=== PATIENT | female | born 1980 | race Caucasian/White ===

== ENCOUNTER 2018-11-05 05:58 | Inpatient (IN) ==
[2018-11-05] MEDS ORDERED: OXYTOCIN/DEXTROSE 5%-WATER 30 UNITS/500 ML BAG IV ONE ×2 (06:11→15:11)
[2018-11-05] MEDS ORDERED: RINGER'S SOLUTION,LACTATED 1,000 ML IV ONE (06:11)
[2018-11-05] MEDS ORDERED: DEXTROSE 5%-LACTATED RINGERS 1,000 ML IV PRN (06:11)
[2018-11-05] MEDS ORDERED: ONDANSETRON HCL/PF 2 MG/ML VIAL IV PRN ×2 (06:11→11:51)
[2018-11-05 07:54] LABS: Cocaine Ur Negative (NEGATIVE); Urine Barbiturate Negative (NEGATIVE); Urine Benzodiazepines Negative (NEGATIVE); Urine Opiates Negative (NEGATIVE); Urine PCP Negative (NEGATIVE); Urine THC Negative (NEGATIVE)
[2018-11-05] MEDS ORDERED: LIDOCAINE HCL/EPINEPHRINE 20 ML VIAL ONE (11:16)
--- NOTE | 2018-11-05 11:42 | ANES ---
Anesthesia Pre Procedure Eval Vitals/Labs: Last Vital Signs Temp 37.0 C 11/05/18 06:50 Pulse 97 11/05/18 06:50 Resp 20 11/05/18 06:50 BP 134/79 11/05/18 06:50 Pulse Ox 98 11/05/18 06:50 HOME MEDICATIONS ferrous sulfate 325 mg (65 mg iron) tablet 325 mg PO DAILY #30 tab 08/14/18 [Last Taken 11/04/18 21:00] Vits96/Iron Fum/Folic [ S] 1 tab PO DAILY 11/05/18 [Last Taken 11/04/18 21:00] Allergies/Adverse Reactions: Allergies Allergy/AdvReac Type Severity Reaction Status Date / Time No Known Allergies Allergy Verified 11/05/18 06:13 - Planned Procedure Planned Procedure: MEDICAL INDUCTION ADVANCED MEDICAL AGE Medication List Reviewed:: Yes Allergies Verified: Yes Medical History (Last Reviewed 11/05/18 @ 11:42 by Mateo Dunlap CRNA) Anxiety (Acute) Onset Date: Unknown Heart murmur (Chronic) Onset Date: Unknown Pt states only heard when she is History of fracture of right ankle (Resolved) Onset Date: ~2000 History of thrombocytopenia (Resolved) Onset Date: ~2014 with pregnancies History of seizures as a child (Resolved) Onset Date: Unknown Hypertension (Resolved) Onset Date: Unknown Anemia (Chronic) Onset Date: Unknown 2018-w/ , spontaneous (Resolved) Onset Date: ~2015 Hypertension (Chronic) Onset Date: Unknown Surgical History (Last Reviewed 11/05/18 @ 11:42 by Mateo Dunlap CRNA) History of cholecystectomy (Resolved) Onset Date: 02/14/17 History of eye surgery (Resolved) Onset Date: ~1982 piece of sparkler removed from eye History of tonsillectomy (Resolved) Onset Date: ~1983 History of myringotomy (Resolved) Onset Date: ~1982 1981 History of adenoidectomy (Resolved) Onset Date: ~1982 Family History (Last Reviewed 11/05/18 @ 11:42 by Mateo Dunlap CRNA) Father Diabetes Hypertension Hyperlipemia CAD (coronary artery disease) Mother COPD (chronic obstructive pulmonary disease) Heart disease Asthma - Family Anesthesia History Family History:: no untoward family reactions to anesthesia - Airway/Neck/Teeth Within Normal Limits:: Yes Teeth Condition: intact Denture Type: None Neck Exam: full range of motion Mallampatti Score: 1 Thyromental (T-M) distance: > 6 cm Mandibulo Hyoid distance: > 3 cm - Respiratory Respiratory Physical: lungs clear Smoking Status: Never smoker Sleep Apnea currently treated: No Sleep Apnea by current assessment: No - Cardiovascular Tolerate Activity: Good Heart Sounds: S1 & S2, Regular - Anesthesia Assessment and Plan ASA Class: PS, II, E Anesthesia Type Plan: Epidural Planned difficult intubation/equipment available: No
--- NOTE | 2018-11-05 11:43 | ANES ---
Post Anesthesia Assessment - Vital Signs Vitals: Last Vital Signs Temp 37.0 C 11/05/18 06:50 Pulse 97 11/05/18 06:50 Resp 20 11/05/18 06:50 BP 134/79 11/05/18 06:50 Pulse Ox 98 11/05/18 06:50 Airway Patency: Normal - Mental Status Level Of Consciousness: Awake - Pain Level Pain Score: 2 - N/V Assessment Nausea/Vomiting Presence: None Dehydration:: No
--- NOTE | 2018-11-05 11:43 | ANES ---
Post Anesthesia Discharge - Transfer of Care Transfer of Care handoff given to nurse: Yes - Anesthesia Post Op Note Anesthesia Post Op Note: Care transferred to OB RN
--- NOTE | 2018-11-05 11:45 | ANES ---
Anesthesia Procedure Note Procedure Note: ANESTHESIA PROCEDURE NOTE Date of Procedure: 11/05/2018 Time of procedure: 1130. Performed by: Ryan Dunlap CRNA [facility] Program Manager: None. Preprocedure diagnosis: Active labor. Post procedure diagnosis: Same. Procedure: Insertion of labor epidural. Indications: The patient is a 38-year-old multigravid female in active labor requesting labor epidural for pain management. Findings: See below. Details of the procedure: The patient was placed in a sitting position. Back was prepped with DuraPrep. Patient was then draped in a sterile fashion. Lidocaine 1% was infiltrated to the skin and subcutaneous tissues at the level of the L3 4 interspace. The epidural space was identified using a 18-gauge Tuohy needle with [id number] technique. Epidural catheter was inserted without difficulty. Negative test dose was elicited using 3 mL of 2% preservative-free lidocaine plus epinephrine 1 200,000. The epidural catheter was then taped and secured in place. EBL: Minimal. Fluids: N/A. Specimen: N/A. Post procedure condition: The patient tolerated the procedure well. No complications were noted. Thank you for this consultation. Houser CRNA
[2018-11-05] MEDS ORDERED: BUPIVACAINE HCL/0.9 % NACL/PF 250 ML EP PRN (11:51)
[2018-11-05] MEDS ORDERED: NALOXONE HCL 1 MG/1 ML SYRG IV PRN (11:51)
--- NOTE | 2018-11-05 12:43 | HP ---
Chief Complaint - Chief Complaint Date of Service: 11/05/18 Time of Service: 12:42 Chief Complaint: Induction of labor for CHTN and AMA History of Present Illness: 38 yo at 39 wks presents to L&D for induction of labor due to AMA and C HTN. This complicated by AMA, anemia, anxiety, and CHTN. Rh positive Rubella immune GBS negative Medical History (Last Reviewed 11/05/18 @ 11:42 by Mateo Dunlap CRNA) Anxiety (Acute) Onset Date: Unknown Heart murmur (Chronic) Onset Date: Unknown Pt states only heard when she is History of fracture of right ankle (Resolved) Onset Date: ~2000 History of thrombocytopenia (Resolved) Onset Date: ~2014 with pregnancies History of seizures as a child (Resolved) Onset Date: Unknown Hypertension (Resolved) Onset Date: Unknown Anemia (Chronic) Onset Date: Unknown 2018-w/ , spontaneous (Resolved) Onset Date: ~2015 Hypertension (Chronic) Onset Date: Unknown Surgical History: Surgical History (Last Reviewed 11/05/18 @ 11:42 by Mateo Dunlap CRNA) History of cholecystectomy (Resolved) Onset Date: 02/14/17 History of eye surgery (Resolved) Onset Date: ~1982 piece of sparkler removed from eye History of tonsillectomy (Resolved) Onset Date: ~1983 History of myringotomy (Resolved) Onset Date: ~1982 1981 History of adenoidectomy (Resolved) Onset Date: ~1982 Family History: Family History (Last Reviewed 11/05/18 @ 11:42 by Mateo Dunlap CRNA) Father Diabetes Hypertension Hyperlipemia CAD (coronary artery disease) Mother COPD (chronic obstructive pulmonary disease) Heart disease Asthma Social History: Preferred Language Slovenian Smoking Status Never smoker Abuse History No History of abuse Psych History No pertinent hx (Last Updated 10/29/18 @ 14:20 by Gurpreet Gupta DO) No Social History Section defined Review Of Systems (GEN) - Review of Systems Generalized/Overall Review: Present: No Symptoms Reported EENTM: Present: No Symptoms Reported Respiratory: Present: No Symptoms Reported Cardiac: Present: No Symptoms Reported Abdominal: Present: No Symptoms Reported Genitourinary: Present: No Symptoms Reported Musculoskeletal: Present: No Symptoms Reported Neurological: Present: Emotional Problems Skin: Present: No Symptoms Reported Endocrine: Present: No Symptoms Reported Immunizations: IMMUNIZATION HX Immunizations Up to Date Yes History of Influenza Vaccine No Allergies/Adverse Reactions: Allergies Allergy/AdvReac Type Severity Reaction Status Date / Time No Known Allergies Allergy Verified 11/05/18 06:13 Home Medications: HOME MEDICATIONS ferrous sulfate 325 mg (65 mg iron) tablet 325 mg PO DAILY #30 tab 08/14/18 [Last Taken 11/04/18 21:00] Vits96/Iron Fum/Folic [ S] 1 tab PO DAILY 11/05/18 [Last Taken 11/04/18 21:00] Exam - Exam Vital Signs: Vital Signs - Last Taken Temp 37.0 C 11/05/18 06:50 Pulse 97 11/05/18 06:50 Resp 20 11/05/18 06:50 BP 134/79 11/05/18 06:50 Pulse Ox 98 11/05/18 06:50 Constitutional: Present: Alert, Oriented x3, Cooperative, No distress ENT Exam: Present: hearing grossly normal Respiratory: Present: lungs clear, no respiratory distress Cardiovascular/Chest: Present: regular rate, rhythm, no edema Abdomen: Present: soft, nontender, no rebound tenderness, other - gravid /Rectal: Present: Other - cervix 2-3/60/-2 Extremity: Present: no pedal edema, no calf tenderness Skin Exam: Present: normal color, warm/dry, no cyanosis Neurologic: Present: alert, normal mood/affect, oriented x 3 Appearance: Present: appropriate appearance, appropriate insight Eye contact: Present: cooperative, good eye contact Thoughts: Present: normal thought pattern Diagnostic Studies: Laboratory Results Urine Opiates Screen Negative (NEGATIVE) 11/05/18 07:15 Barbiturate Screen Negative (NEGATIVE) 11/05/18 07:15 Ur Phencyclidine Scrn Negative (NEGATIVE) 11/05/18 07:15 Urine Amphetamine Negative (NEGATIVE) 11/05/18 07:15 U Benzodiazepines Scrn Negative (NEGATIVE) 11/05/18 07:15 Urine Cocaine Screen Negative (NEGATIVE) 11/05/18 07:15 Urine Marijuana (THC) Negative (NEGATIVE) 11/05/18 07:15 NST reactive Assessment/Plan - Assessment/Plan (1) Encounter for induction of labor Assessment: Admit for pitocin induction of labor. Epidural PRN. Problem: Acute (2) Anxiety Problem: Acute (3) Advanced maternal age (AMA) in Problem: Acute (4) Hypertension Problem: Resolved
--- NOTE | 2018-11-05 12:45 | PN ---
Progess Note - Interim Date: 11/05/18 Time: 12:43 Narrative: 11/05/18 12:43 Patient comfortable with epidural Vital signs stable. Pitocin at 9 mu/min. FHT: 130 baseline, reassuring Contractions q 1-2 min Cervix: 8/90/-1 with compound head/hand presentation. Impression: Intrauterine at 39 weeks induction of labor for chronic hypertension and advanced maternal age Plan: With decreased Pitocin due to tach systole
--- NOTE | 2018-11-05 15:08 | OR ---
Operative Report - Dictated Report Narrative: Spontaneous vaginal delivery of viable female at 1434 on 11/05/2018 Apgars 9 and 9, weighing 3118 g in JOCELINE position. Placenta delivered complete, intact, with three vessel cord Estimated blood loss: 100 mL Anesthesia: epidural Lacerations: Second-degree vaginal laceration repaired with 3-0 Vicryl Rapide. Small arterial bleed at the introitus controlled with a [id number] 4-0 Vicryl Rapide stitch. History for MU Definition: * The number of deliveries resulting in a live the patient experienced prior to current hospitalization * The previous delivery of live twins or any live multiple gestation is consider ed one live event. *If primagravida or nulliparous is documented select zero for the number of previous live births. Live Events: 4
[2018-11-05] MEDS ORDERED: HYDROCORTISONE 30 APPL TUBE TP PRN (15:11)
[2018-11-05] MEDS ORDERED: GLYCERIN/WITCH HAZEL LEAF 40 APPL BOX TP PRN (15:11)
[2018-11-05] MEDS ORDERED: BENZOCAINE/MENTHOL 81 SPRAY CAN TP PRN (15:11)
[2018-11-05] MEDS ORDERED: oxyCODONE HCL/ACETAMINOPHEN 1 TAB TABLET PO PRN ×2 (15:11)
[2018-11-05] MEDS ORDERED: SENNOSIDES 8.6 MG TABLET PO PRN (15:11)
[2018-11-05] MEDS ORDERED: BISACODYL 10 MG SUPP.RECT RC PRN (15:11)
[2018-11-05] MEDS: DOCUSATE SODIUM 100 MG CAPSULE PO SCH (20:08)
[2018-11-05] MEDS: IBUPROFEN 800 MG TABLET PO PRN (21:21)
--- NOTE | 2018-11-06 04:37 | PN ---
Subjective - Date and Time Seen Date: 11/06/18 Time: 04:36 Objective - Vitals Vitals: Last Vital Signs Temp 37.0 C 11/06/18 00:31 Pulse 77 11/06/18 00:31 Resp 16 11/06/18 00:31 BP 114/59 11/06/18 00:31 Pulse Ox 98 11/06/18 00:31 Patient denies complaints. Breast-feeding and bonding well Lochia wnl Abdomen - soft, nontender Uterus - firm, at umbilicus - 1 No calf tenderness Impression: day #1 - s/p spontaneous vaginal delivery. Chronic hypertension-stable Plan: Continue routine care Cauti Physician Documentation - Urinary Catheter Management Urethral (Gu[place]upe) Date of Insertion: 11/05/18 Time of Insertion: 12:45 Date of Removal: 11/05/18 Time of Removal: 14:25 Assessment/Plan - Problems/Diagnosis (1) Encounter for induction of labor Problem: Acute (2) Anxiety Problem: Acute (3) Advanced maternal age (AMA) in Problem: Acute (4) Hypertension Problem: Resolved
[2018-11-06] MEDS: IBUPROFEN 800 MG TABLET PO PRN ×2 (10:10→20:50)
[2018-11-06] MEDS: DOCUSATE SODIUM 100 MG CAPSULE PO SCH ×2 (10:10→20:50)
[2018-11-06] MEDS ORDERED: NEOMYCIN/BACITRACIN/POLYMYXINB 15 APPL TUBE TP PRN (12:59)
[2018-11-06] MEDS ORDERED: NEOMYCIN/BACITRACIN/POLYMYXINB 30 APPL TUBE TP PRN (13:15)
[2018-11-07 08:33] VITALS: BP 123/74
[2018-11-07] MEDS: DOCUSATE SODIUM 100 MG CAPSULE PO SCH (10:46)
[2018-11-07] MEDS: IBUPROFEN 800 MG TABLET PO PRN (13:23)
--- NOTE | 2018-11-07 13:41 | PN ---
Subjective - Date and Time Seen Date: 11/07/18 Time: 13:40 Objective - Vitals Vitals: Last Vital Signs Temp 36.1 C 11/07/18 08:16 Pulse 78 11/07/18 08:16 Resp 18 11/07/18 08:16 BP 123/74 11/07/18 08:16 Pulse Ox 99 11/06/18 23:52 Patient denies complaints. Breast-feeding Lochia wnl Abdomen - soft, nontender Uterus - firm, at umbilicus - 2 No calf tenderness Impression: day #2 - s/p spontaneous vaginal delivery. Plan: Routine discharge instructions Cauti Physician Documentation - Urinary Catheter Management Urethral (Gu[place]upe) Date of Insertion: 11/05/18 Time of Insertion: 12:45 Date of Removal: 11/05/18 Time of Removal: 14:25 Assessment/Plan - Problems/Diagnosis (1) Encounter for induction of labor Problem: Acute (2) Anxiety Problem: Acute (3) Advanced maternal age (AMA) in Problem: Acute (4) Hypertension Problem: Resolved
== END 2018-11-07 13:30 | disposition home or self-care (01) | DRG 807 ==
LOC: OB 05:58
PROVIDERS: ADMIT Obstetrics & Gynecology; ATTEND Obstetrics & Gynecology
CPT/HCPCS: 59025; 80307; 88307

== ENCOUNTER 2020-07-08 08:05 | Inpatient (IN) ==
[2020-07-08 08:28] LABS: Hematocrit 36.1 % (37.0-47.0); Hemoglobin 11.8 gm/dL (12.5-16.0); Mean Corpuscular Hemoglobin 28.4 pg (27-31); Mean Corpuscular Hgb Conc 32.7 g/dl (32-36); Mean Platelet Volume 9.4 fl (8-12.5); Neutrophil % 73.6 % (42-75.0); Platelet Count 136 K/mm3 (150-450); Red Blood Count 4.15 M/mm3 (4.2-5.4); Red Cell Distribution Width 13.5 % (11.5-14.0); White Blood Count 6.8 K/mm3 (4.0-10.5)
[2020-07-08 08:49] LABS: Anion Gap 15.1 mmol/L (6.8-13.8); BUN/Creatinine Ratio 10.6 (9.0-21.6); Bilirubin, Total 0.3 mg/dL (0.0-1.1); Ca. Corrected For Albumin 9.4 mg/dL (8.4-10.2); Calcium * 8.9 mg/dL (7.9-10.9); Carbon Dioxide 21.5 mmol/L (24-32.6); Potassium 3.6 mmol/L (3.4-4.6); Total Protein 6.8 gm/dL (6.2-8.2)
[2020-07-08 09:05] LABS: Random Urine Total Protein 19.1 mg/dL (0-12)
[2020-07-08] MEDS ORDERED: OXYTOCIN/0.9 % SODIUM CHLORIDE 30 UNITS/500 ML BAG IV ONE ×2 (10:20→20:25)
[2020-07-08] MEDS ORDERED: ONDANSETRON 4 MG TAB.RAPDIS PO PRN (10:20)
[2020-07-08] MEDS ORDERED: RINGER'S SOLUTION,LACTATED 1,000 ML IV ONE (10:20)
--- NOTE | 2020-07-08 15:19 | HP ---
Chief Complaint - Chief Complaint Date of Service: 07/08/20 Time of Service: 14:53 Chief Complaint: here for evaluation for chronic HTN. History of Present Illness: 40 yo at 37 5/7 wks admitted to L&D for worsening renal function with neda iable late deceleration on NST. This complicated by anemia, anxiety, AMA, CHTN, thrombocytopenia, and late PNC (24 5/7wks). Rh positive Rubella nonimmune GBS negative Medical History (Last Reviewed 07/08/20 @ 15:06 by Gurpreet Gupta DO) Thrombocytopenia affecting (Acute) Onset Date: 07/06/20 Spontaneous vaginal delivery (Acute) Encounter for induction of labor (Acute) Anxiety (Chronic) Onset Date: Unknown Heart murmur (Chronic) Onset Date: Unknown Pt states only heard when she is Advanced maternal age (AMA) in (Chronic) Onset Date: 05/05/18 (Suspected) Suspected by history History of fracture of right ankle (Resolved) Onset Date: ~2000 History of thrombocytopenia (Resolved) Onset Date: ~2014 with pregnancies History of seizures as a child (Resolved) Onset Date: Unknown Hypertension (Resolved) Onset Date: Unknown Anemia (Chronic) Onset Date: Unknown 2018-w/ , spontaneous (Resolved) Onset Date: ~2015 Vaginal delivery (Acute) Status post normal vaginal delivery (Acute) Hypertension (Chronic) Onset Date: Unknown Elevated serum hCG (Acute) Surgical History: Surgical History (Last Reviewed 07/08/20 @ 15:06 by Gurpreet Gupta DO) History of cholecystectomy (Resolved) Onset Date: 02/14/17 History of eye surgery (Resolved) Onset Date: ~1982 piece of sparkler removed from eye History of tonsillectomy (Resolved) Onset Date: ~1983 History of myringotomy (Resolved) Onset Date: ~1982 1981 History of adenoidectomy (Resolved) Onset Date: ~1982 Family History: Family History (Last Reviewed 07/08/20 @ 15:06 by Gurpreet Gupta DO) Father Diabetes Hypertension Hyperlipemia CAD (coronary artery disease) Cancer prostate Mother COPD (chronic obstructive pulmonary disease) Heart disease Asthma Social History: (Last Reviewed 07/08/20 @ 15:06 by Gurpreet Gupta DO) Social History: senior living: No Marital status: household members: spouse, children number of children: 5 current occupational status: other current occupation: Homemaker current occupational exposures/hazards: No Highest education level completed: Associate degree: occupat Service: No Tobacco: Smoking Status: Never smoker second hand exposure: No Alcohol: alcohol intake: former alcohol intake frequency: holiday/special occasion details: No alcohol since + UPT Substance Use: substance use type: does not use Dietary Habits: caffeine: No caffeine comment: none since +UPT Exercise: Physical activity functional status: normal ROM and activity frequency: does not exercise Ilene/Rastafari: agree to transfusion: Yes Review Of Systems (GEN) - Review of Systems Generalized/Overall Review: Present: No Symptoms Reported EENTM: Present: No Symptoms Reported Respiratory: Present: No Symptoms Reported Cardiac: Present: No Symptoms Reported Abdominal: Present: No Symptoms Reported Genitourinary: Present: No Symptoms Reported Musculoskeletal: Present: No Symptoms Reported Neurological: Present: No Symptoms Reported Skin: Present: No Symptoms Reported Endocrine: Present: No Symptoms Reported Immunizations: IMMUNIZATION HX Immunizations Up to Date Yes History of Influenza Vaccine No Allergies/Adverse Reactions: Allergies Allergy/AdvReac Type Severity Reaction Status Date / Time No Known Allergies Allergy Verified 07/06/20 09:06 Home Medications: HOME MEDICATIONS Vits96/Iron Fum/Folic [ S] 1 tab PO DAILY 11/05/18 [Last Taken 11/04/18 21:00] aspirin 81 mg tablet,delayed release 81 mg PO DAILY 06/15/20 [Last Taken Unknown] Exam - Exam Vital Signs: Vital Signs - Last Taken Temp 37.2 C 07/08/20 08:20 Pulse 79 07/08/20 08:20 Resp 18 07/08/20 08:20 BP 144/83 H 07/08/20 08:20 Pulse Ox 97 07/08/20 08:20 Constitutional: Present: Alert, Oriented x3, Cooperative, No distress ENT Exam: Present: hearing grossly normal Neck: Present: non-tender, trachea midline. Absent: thyromegaly Breasts: Present: Exam deferred Respiratory: Present: lungs clear, no respiratory distress Cardiovascular/Chest: Present: normal peripheral pulses, regular rate, rhythm, no edema Abdomen: Present: soft, nontender, no rebound tenderness, other - gravid /Rectal: Present: Other - Cervix 4/50/-2 Extremity: Present: non-tender, no pedal edema, no calf tenderness Skin Exam: Present: normal color, warm/dry, no cyanosis Neurologic: Present: alert, normal mood/affect, oriented x 3 Appearance: Present: appropriate appearance, appropriate insight Eye contact: Present: cooperative, good eye contact, normal speech Thoughts: Present: normal thought pattern, normal mood /affect Diagnostic Studies: Abnormal Lab Results 07/08/20 07/08/20 07/08/20 Range/Units 08:23 08:23 08:23 RBC 4.15 L (4.2-5.4) M/mm3 Hgb 11.8 L (12.5-16.0) gm/dL Hct 36.1 L (37.0-47.0) % Plt Count 136 L (150-450) K/mm3 Immature Gran % (Auto) 1.00 H (0.001-0.429) % Immature Gran # (Auto) 0.07 H (0.000-0.0310) K/mm3 Lymphocytes % 17.7 L (20-51) % Lymphocytes # 1.20 L (1.5-3.5) k/mm3 Carbon Dioxide 21.5 L (24-32.6) mmol/L Anion Gap 15.1 H (6.8-13.8) mmol/L ALT 15 L (19-67) U/L Albumin 3.0 L (3.4-5.0) gm/dl U Random Total Protein 19.1 H (0-12) mg/dL Laboratory Results WBC 6.8 K/mm3 (4.0-10.5) 07/08/20 08:23 RBC 4.15 M/mm3 (4.2-5.4) L 07/08/20 08:23 Hgb 11.8 gm/dL (12.5-16.0) L 07/08/20 08:23 Hct 36.1 % (37.0-47.0) L 07/08/20 08:23 MCV 87.0 fl (78-100) 07/08/20 08:23 MCH 28.4 pg (27-31) 07/08/20 08:23 MCHC 32.7 g/dl (32-36) 07/08/20 08:23 RDW 13.5 % (11.5-14.0) 07/08/20 08:23 Plt Count 136 K/mm3 (150-450) L 07/08/20 08:23 MPV 9.4 fl (8-12.5) 07/08/20 08:23 Immature Gran % (Auto) 1.00 % (0.001-0.429) H 07/08/20 08:23 Immature Gran # (Auto) 0.07 K/mm3 (0.000-0.0310) H 07/08/20 08:23 Neutrophils % 73.6 % (42-75.0) 07/08/20 08:23 Lymphocytes % 17.7 % (20-51) L 07/08/20 08:23 Monocytes % 4.9 % (0.0-9) 07/08/20 08:23 Eosinophils % 2.4 % (0.0-3.0) 07/08/20 08:23 Basophils % 0.4 % (0.0-1.0) 07/08/20 08: Nucleated RBC % 0.0 k/mm3 (0-1) 07/08/20 08:23 Neutrophils # 5.0 K/mm3 (1.3-6.0) 07/08/20 08:23 Lymphocytes # 1.20 k/mm3 (1.5-3.5) L 07/08/20 08:23 Monocytes # 0.3 k/mm3 (0.0-1.0) 07/08/20 08:23 Eosinophils # 0.2 k/mm3 (0.0-0.7) 07/08/20 08:23 Absolute Basophils 0.0 k/mm3 (0.0-0.1) 07/08/20 08:23 Sodium 137 mmol/L (132-142) 07/08/20 08:23 Plasma Sodium 137 mmol/L (130-142) 07/08/20 08:23 Potassium 3.6 mmol/L (3.4-4.6) 07/08/20 08:23 Chloride 104 mmol/L (97-106) 07/08/20 08:23 Carbon Dioxide 21.5 mmol/L (24-32.6) L 07/08/20 08:23 Anion Gap 15.1 mmol/L (6.8-13.8) H 07/08/20 08:23 BUN 11 mg/dL (3-23) 07/08/20 08:23 Creatinine 1.04 mg/dL (0.4-1.4) 07/08/20 08:23 Est GFR (Non-Af Amer) 62 mL/min (60-130) 07/08/20 08:23 BUN/Creatinine Ratio 10.6 (9.0-21.6) 07/08/20 08:23 Random Glucose 80 mg/dL (70-110) D 07/08/20 08:23 Calcium 8.9 mg/dL (7.9-10.9) 07/08/20 08:23 Calcium Adj for Albumin 9.4 mg/dL (8.4-10.2) 07/08/20 08:23 Total Bilirubin 0.3 mg/dL (0.0-1.1) 07/08/20 08:23 AST 17 U/L (0-48) 07/08/20 08:23 ALT 15 U/L (19-67) L 07/08/20 08:23 Alkaline Phosphatase 82 U/L (50-170) 07/08/20 08:23 Total Protein 6.8 gm/dL (6.2-8.2) 07/08/20 08:23 Albumin 3.0 gm/dl (3.4-5.0) L 07/08/20 08:23 Ur Random Creatinine 188.6 mg/dL (60-200) 07/08/20 08:23 U Random Total Protein 19.1 mg/dL (0-12) H 07/08/20 08:23 U [place] Prot/Creat Ratio 101 mg/gm (0-199) 07/08/20 08:23 Assessment/Plan - Assessment/Plan (1) Late deceleration of heart rate Assessment: Admit for augmentation of labor. Epidural and pitocin PRN. Problem: Acute (2) Creatinine elevation Problem: Acute (3) Thrombocytopenia affecting Problem: Acute (4) Anxiety Problem: Chronic (5) Advanced maternal age (AMA) in Problem: Chronic (6) Hypertension Problem: Chronic Qualifiers: Hypertension type: essential hypertension Qualified Code(s): I10 - Essential (primary) hypertension (7) Anemia Problem: Chronic Qualifiers: Anemia type: iron deficiency Iron deficiency anemia type: inadequate dietary iron intake Qualified Code(s): D50.8 - Other iron deficiency anemias
--- NOTE | 2020-07-08 15:30 | PN ---
Progess Note - Interim Date: 07/08/20 Time: 15:20 Narrative: 07/08/20 15:20 Patient tolerating contractions well Vital signs stable. Pitocin at 3 mu/min. FHT: 130 baseline, reassuring contractions q 2-3 min Cervix: 4/50/-2, AROM at 1313-clear Impression: Intrauterine at 37-5/7 weeks in labor Plan: Continue present plan
[2020-07-08] MEDS ORDERED: ONDANSETRON HCL/PF 2 MG/ML VIAL IV PRN (19:26)
[2020-07-08] MEDS ORDERED: NALOXONE HCL 1 MG/1 ML SYRG IV PRN (19:26)
[2020-07-08] MEDS ORDERED: BUPIVACAINE HCL/0.9 % NACL/PF 250 ML EP PRN (19:26)
[2020-07-08] MEDS ORDERED: fentaNYL CITRATE/PF 50 MCG/ML AMPUL IT SCH (19:30)
[2020-07-08] MEDS ORDERED: LIDOCAINE HCL 50 ML VIAL ONE (19:57)
[2020-07-08] MEDS ORDERED: GLYCERIN/WITCH HAZEL LEAF 40 APPL BOX TP PRN (20:25)
[2020-07-08] MEDS ORDERED: IBUPROFEN 800 MG TABLET PO PRN ×2 (20:25)
[2020-07-08] MEDS ORDERED: HYDROCORTISONE 30 APPL TUBE TP PRN (20:25)
[2020-07-08] MEDS ORDERED: BENZOCAINE/MENTHOL 81 SPRAY CAN TP PRN (20:25)
[2020-07-08] MEDS ORDERED: SENNOSIDES 8.6 MG TABLET PO PRN (20:25)
[2020-07-08] MEDS ORDERED: BISACODYL 10 MG SUPP.RECT RC PRN (20:25)
--- NOTE | 2020-07-08 20:29 | OR ---
Operative Report - Dictated Report Narrative: Baby precipitously delivered before I walked into the room. Spontaneous vaginal delivery of viable male at 1944 on 07/08/2020 with Apgars 9 and 9, weighing 2956 g. Cord clamping delayed approximately 1 minute Placenta delivered complete, intact, with three vessel cord Estimated blood loss: 150 mL Anesthesia: Local-10 mL of 1% lidocaine Lacerations: 3 cm second-degree perineal laceration repaired with 3-0 Vicryl Rapide History for MU History for Definition: * The number of deliveries resulting in a live the patient experienced prior to current hospitalization * The previous delivery of live twins or any live multiple gestation is considered one live event. *If primagravida or nulliparous is documented select zero for the number of previous live births. Live Events: Live Events: 5
[2020-07-08] MEDS ORDERED: LIDOCAINE HCL 50 ML VIAL IJ ONE (20:49)
[2020-07-08] MEDS: oxyCODONE HCL/ACETAMINOPHEN 1 TAB TABLET PO PRN (20:52)
[2020-07-08] MEDS: DOCUSATE SODIUM 100 MG CAPSULE PO SCH (22:43)
[2020-07-09] MEDS: oxyCODONE HCL/ACETAMINOPHEN 1 TAB TABLET PO PRN ×3 (04:27→18:42)
--- NOTE | 2020-07-09 08:10 | PN ---
Subjective - Date and Time Seen Date: 07/09/20 Time: 08:09 Objective - Vitals Vitals: Last Vital Signs Temp 36.5 C 07/09/20 07:58 Pulse 68 07/09/20 07:58 Resp 18 07/09/20 07:58 BP 141/82 H 07/09/20 07:58 Pulse Ox 97 07/09/20 07:58 Patient denies complaints -specifically denies headache, visual changes, epigastric pain, or edema. Breast-feeding well. Lochia wnl abdomen - soft, nontender Uterus -firm, at umbilicus - 1 No calf tenderness Impression: day #1 - s/p spontaneous vaginal delivery. Chronic hypertension-stable. Plan: Continue routine care Assessment/Plan - Problems/Diagnosis (1) Late deceleration of heart rate Problem: Acute (2) Creatinine elevation Problem: Acute (3) Thrombocytopenia affecting Problem: Acute (4) Anxiety Problem: Chronic (5) Advanced maternal age (AMA) in Problem: Chronic (6) Hypertension Problem: Chronic Qualifiers: Hypertension type: essential hypertension Qualified Code(s): I10 - Essential (primary) hypertension (7) Anemia Problem: Chronic Qualifiers: Anemia type: iron deficiency Iron deficiency anemia type: inadequate dietary iron intake Qualified Code(s): D50.8 - Other iron deficiency anemias
[2020-07-09] MEDS ORDERED: PRENATAL VITS96/IRON FUM/FOLIC 1 TAB TABLET PO SCH (09:00)
[2020-07-09] MEDS: DOCUSATE SODIUM 100 MG CAPSULE PO SCH (09:43)
[2020-07-10] MEDS: oxyCODONE HCL/ACETAMINOPHEN 1 TAB TABLET PO PRN ×2 (01:20→07:48)
[2020-07-10] MEDS: DOCUSATE SODIUM 100 MG CAPSULE PO SCH ×3 (01:27→08:54)
[2020-07-10 08:10] VITALS: BP 132/74
--- NOTE | 2020-07-10 09:06 | PN ---
Subjective - Date and Time Seen Date: 07/10/20 Time: 09:04 Objective - Vitals Vitals: Last Vital Signs Temp 36.8 C 07/10/20 08:04 Pulse 68 07/10/20 08:04 Resp 18 07/10/20 08:04 BP 132/74 07/10/20 08:04 Pulse Ox 98 07/10/20 08:04 Patient denies complaints. Denies preeclampsia signs/symptoms. Breast-feeding well. Lochia wnl abdomen - soft, nontender Uterus -firm, at umbilicus - 2 No calf tenderness. Impression: day #2 - s/p spontaneous vaginal delivery. Plan: Routine discharge instructions. Preeclampsia precautions. Recheck CBC and CMP at visit. Assessment/Plan - Problems/Diagnosis (1) Late deceleration of heart rate Problem: Resolved (2) Creatinine elevation Problem: Acute (3) Thrombocytopenia affecting Problem: Acute (4) Anxiety Problem: Chronic (5) Advanced maternal age (AMA) in Problem: Chronic (6) Hypertension Problem: Chronic Qualifiers: Hypertension type: essential hypertension Qualified Code(s): I10 - Essential (primary) hypertension (7) Anemia Problem: Chronic Qualifiers: Anemia type: iron deficiency Iron deficiency anemia type: inadequate dietary iron intake Qualified Code(s): D50.8 - Other iron deficiency anemias
--- NOTE | 2020-07-10 09:19 | DS ---
OB Discharge Summary (1) Late deceleration of heart rate Status: Resolved (2) Creatinine elevation Status: Acute (3) Thrombocytopenia affecting Status: Acute (4) Anxiety Status: Chronic (5) Advanced maternal age (AMA) in Status: Chronic (6) Hypertension Status: Chronic Qualifiers: Hypertension type: essential hypertension Qualified Code(s): I10 - Essential (primary) hypertension (7) Anemia Status: Chronic Qualifiers: Anemia type: iron deficiency Iron deficiency anemia type: inadequate dietary iron intake Qualified Code(s): D50.8 - Other iron deficiency anemias Delivery Date: 07/08/20 Delivery Time: 19:44 :: 7 Para:: 6 Gestational weeks:: 37 Gestational days:: 5 Intrapartum Procedures: Spontaneous Vaginal Delivery, Delivered Procedures: Other - Repair of superficial second-degree vaginal laceration /OP Complications: Other - Repair of superficial second-degree vaginal laceration Discharge Diagnosis: Term -Delivered - Discharge Information Date of Discharge: 07/10/20 Hospital Course: 40-year-old 7 para 5 at 37-5/7 weeks presented to labor and delivery for monitoring due to previous NST with late variable decelerations. During the course of her monitoring patient was noted to be in labor. Her cervix changed from 4 to 5 cm and she had an another variable late deceleration, so she was admitted for augmentation of labor. Her labor, delivery, and course were uncomplicated. Discharge Location: Home Disposition: Home self-care Condition: Good Referrals: Janina Bingham MD [Primary Care Provider] - Activity on Discharge:: Activity as tolerated Discharge Diet: General/regular food Additional Patient Instructions (free text): Minnie rahman two week post check up is on 07/26/2020 at 9:30 AM with . Eliecer's checkup is on , 07/13/2020 at 12:45 PM with Aura Rosenberg. Rest frequently and drink plenty of fluids. Please call [facility] at [phone], [facility] [phone], or [facility] at [phone] with any questions or concerns. Thank you for choosing [facility] to deliver your baby. Eliecer's blood type: A+ Discharge weight: 2811 grams or 6 lbs 3.1 ounces Discharge bilirubin: 6.5 at 34 hours Complete Home Medications List: Complete Home Medication List: Vits96/Iron Fum/Folic [ S] 1 tab PO DAILY 11/05/18 - Plan Discharge to:: Home Follow up in office in:: 2 weeks - [place] Information Weight (Grams): 2,956 Sex: Male Score 1 min: 9 Score 5 min: 9 Circumcision: Yes Infant Complications: Multiple Variable Decels
== END 2020-07-10 11:00 | disposition home or self-care (01) | DRG 806 ==
LOC: OBCLINIC 08:05 → OB 09:30
PROVIDERS: ADMIT Obstetrics & Gynecology; ATTEND Obstetrics & Gynecology